=== PATIENT | male | born 1995 | race African-American/Black ===

== ENCOUNTER 2022-01-30 01:55 | Emergency (ER) | payer BC ==
[~2022-01-30] VITALS: Ht 175.3 cm; Wt 79.0 kg
[2022-01-30 02:05] VITALS: BP 126/47
[2022-01-30] MEDS ORDERED: TETRACAINE 0.5% OPHTH DROPS 4ML BOTHEYE ONE (02:15)
[2022-01-30] MEDS ORDERED: SODIUM CHLORIDE 0.9% IRRIG SOLUTION 1000ML IR ONE (02:15)
[2022-01-30] MEDS ORDERED: FLUORESCEIN SODIUM 1MG/STRIP BOTHEYE ONE (02:15)
[2022-01-30] MEDS ORDERED: IBUPROFEN 600MG TABLET PO ONE (03:15)
[2022-01-30] MEDS ORDERED: IBUP-2029 MT (05:34)
[2022-01-30] MEDS ORDERED: NAPHADR EACHEYE (05:34)
[2022-01-30] MEDS ORDERED: OFLO5DRO3 EACHEYE (05:34)
[2022-01-30] MEDS ORDERED: ERYT60SO TP ×2 (05:34)
== END 2022-01-30 06:03 | disposition home or self-care (01) ==
LOC: ER 01:55
DX: H16.8 Other keratitis (principal)
CPT/HCPCS: 99283